=== PATIENT | male | born 1990 | race Caucasian/White ===

== ENCOUNTER 2016-10-16 08:06 | Emergency (ER) | payer OTHER ==
[~2016-10-16] VITALS: Ht 177.8 cm; Wt 127.0 kg
[~2016-10-16 08:06] MED LIST: ATARAX,VISTARIL25 MG PO; CORTIZONE-10 PL57 GM TP; FOCALIN XR15 MG PO; FOCALIN XR20 MG PO; GEODON80 MG PO; HYDROXYZINE HCL25 MG PO; KENALOG,ARISTOC80 G1 TP; LEXAPRO10 MG PO; MOTRIN600 MG PO; NYSTATIN15 GM TP; VENLAFAXINE H37.5 M3 PO; focalin
[2016-10-16 08:57] LABS: HEMATOCRIT 45.8 % (38.0-50.0); MCH 28.2 PG (29.0-34.0); MCHC 34.1 G/DL (30.0-36.0); MCV 82.7 FL (86-99); MEAN PLAT.VOLUME 10.1 uM^3 (9.0-12.4); PLATELET COUNT 285 K/uL (156-360); RBC DIS.WIDTH-CV 12.6 % (11.8-14.6); RBC DIS.WIDTH-SD 38.2 % (39-53); RED BLOOD COUNT 5.54 M/uL (4.00-5.50); WHITE BLOOD COUNT 8.2 K/uL (4.1-10.2)
[2016-10-16 09:06] LABS: CHLORIDE 104 mEq/L (99-109); POTASSIUM 4.5 mEq/L (3.7-5.4); SODIUM 138 mEq/L (136-147)
[2016-10-16 09:08] LABS: GLUCOSE 101 mg/dL (70-99)
[2016-10-16 09:09] LABS: ANION GAP 9 MEQ/L (2-14)
[2016-10-16] MEDS ORDERED: CLONIDINE HCL0.1 MG PO (09:10)
[2016-10-16 09:11] LABS: SERUM ETHYL ALCOHOL < 10 mg/dL
[2016-10-16] MEDS ORDERED: ABILIFY10 MG PO (09:11)
[2016-10-16 09:12] LABS: GFR ESTIMATE (CALCULATED) > 59 mL/min/
[2016-10-16 09:13] LABS: UREA NITROGEN (BUN) 16 mg/dL (9-23)
[2016-10-16 10:03] LABS: AMPHETAMINE NEGATIVE (500 ng/mL); BARBITURATES NEGATIVE (200 ng/mL); BENZODIAZEPINES NEGATIVE (150 ng/mL); COCAINE NEGATIVE (150 ng/mL); INTERNAL CONTROLS VALID? YES; METHADONE NEGATIVE (200 ng/mL); METHAMPHETAMINE NEGATIVE (500 ng/mL); OPIATES (MORPHINE) NEGATIVE (100 ng/mL); OXYCODONE NEGATIVE (100 ng/mL); PHENCYCLIDINE NEGATIVE (25 ng/mL); PROPOXYPHENE NEGATIVE (300 ng/mL); THC CANNABINOIDS NEGATIVE (50 ng/mL); TRICYCLIC ANTIDEPRESSANTS NEGATIVE (300 ng/mL)
[2016-10-16 10:42] VITALS: BP 113/74
== END 2016-10-16 10:43 | disposition home or self-care (01) ==
LOC: EME 08:06
PROVIDERS: Emergency Medicine
DX: F33.1 Major depressive disorder, recurrent, moderate (principal); F41.8 Other specified anxiety disorders; Z88.0 Allergy status to penicillin
CPT/HCPCS: 80048; 85027; 90839; 99281; 99285; G0480

== ENCOUNTER 2017-04-07 15:28 | Emergency (ER) | payer OTHER ==
[~2017-04-07] VITALS: Ht 177.8 cm; Wt 129.8 kg
[~2017-04-07 15:28] MED LIST changes: +ABILIFY10 MG PO; +CLONIDINE HCL0.1 MG PO
[2017-04-07] MEDS ORDERED: BENADRYL50 MG PO (17:22)
[2017-04-07] MEDS ORDERED: PREDNISONE10 MG PO (17:22)
[2017-04-07 17:38] VITALS: BP 138/97
== END 2017-04-07 17:53 | disposition home or self-care (01) ==
LOC: EME 15:28
DX: R51 Headache (principal); R06.7 Sneezing; T50.905A Adverse effect of unspecified drugs, medicaments and biological substances, initial encounter
CPT/HCPCS: 99281; 99283; J7512

== ENCOUNTER 2017-09-17 21:22 | Emergency (ER) | payer OTHER ==
[~2017-09-17] VITALS: Ht 177.8 cm; Wt 127.7 kg
[~2017-09-17 21:22] MED LIST changes: +BENADRYL50 MG PO; +PREDNISONE10 MG PO
[2017-09-17 22:15] LABS: APPEARANCE CLEAR ((CLEAR)); BILIRUBIN NEGATIVE; BLOOD NEGATIVE; COLOR YELLOW ((YELLOW)); GLUCOSE (STRIP) NEGATIVE; KETONES NEGATIVE; LEUKOCYTES NEGATIVE; NITRITE NEGATIVE; PROTEIN (STRIP) NEGATIVE; SPECIFIC GRAVITY 1.023 (1.000-1.030); UCUL ADDED? NO; UROBILINOGEN 0.2 MG/DL (0.2-1.0)
[2017-09-17 22:44] LABS: SOURCE URINE
[2017-09-17 22:46] LABS: HEMATOCRIT 42.3 % (38.0-50.0); HEMOGLOBIN 14.7 G/DL (12.5-16.6); MCH 28.6 PG (29.0-34.0); MCHC 34.8 G/DL (30.0-36.0); MCV 82.3 FL (86-99); PLATELET COUNT 260 K/uL (156-360); RBC DIS.WIDTH-CV 12.4 % (11.8-14.6); RBC DIS.WIDTH-SD 37.2 % (39-53); RED BLOOD COUNT 5.14 M/uL (4.00-5.50); WHITE BLOOD COUNT 10.3 K/uL (4.1-10.2)
[2017-09-17 22:56] LABS: ALBUMIN 4.1 g/dL (3.2-4.8); CHLORIDE 108 mEq/L (99-109); POTASSIUM 4.3 mEq/L (3.7-5.4); SODIUM 139 mEq/L (136-147)
[2017-09-17 22:58] LABS: GLUCOSE 104 mg/dL (70-99); TOTAL PROTEIN 7.2 g/dL (6.4-8.3)
[2017-09-17 23:00] LABS: TOTAL BILIRUBIN 0.3 mg/dL (0.0-1.0)
[2017-09-17 23:02] LABS: ALKALINE PHOSPHATASE 60 IU/L (3-129); CREATININE 0.8 mg/dL (0.6-1.3); GFR ESTIMATE (CALCULATED) > 59 mL/min/ (58.99-99999)
[2017-09-17 23:03] LABS: UREA NITROGEN (BUN) 15 mg/dL (9-23)
[2017-09-17 23:04] LABS: AST (GOT) 21 IU/L (2-34)
[2017-09-17 23:05] LABS: ALT (GPT) 18 IU/L (3-49); LIPASE 24 U/L (1.0-51.0)
[2017-09-17 23:25] VITALS: BP 113/56
[2017-09-20 12:53] LABS: CHLAMYDIA TRACHOMATIS NEGATIVE; NEISSERIA GONORRHOEAE NEGATIVE
== END 2017-09-17 23:34 | disposition home or self-care (01) ==
LOC: EME 21:22
PROVIDERS: Physician Assistant
DX: M54.9 Dorsalgia, unspecified (principal); R10.30 Lower abdominal pain, unspecified; J45.909 Unspecified asthma, uncomplicated; F32.9 Major depressive disorder, single episode, unspecified; F90.9 Attention-deficit hyperactivity disorder, unspecified type; F42.9 Obsessive-compulsive disorder, unspecified; F41.9 Anxiety disorder, unspecified; F31.9 Bipolar disorder, unspecified; Z88.0 Allergy status to penicillin
CPT/HCPCS: 71046; 74176; 80053; 81003; 83690; 85027; 87491; 87591; 99281; 99284; J1885

== ENCOUNTER 2018-02-22 16:17 | Emergency (ER) | payer OTHER ==
[~2018-02-22] VITALS: Ht 177.8 cm; Wt 131.8 kg
[2018-02-22] MEDS ORDERED: LOPRESSOR25 MG PO (16:57)
[2018-02-22] MEDS ORDERED: RANITIDINE HCL150 M1 PO (16:58)
[2018-02-22 19:04] LABS: HEMATOCRIT 43.7 % (38.0-50.0); HEMOGLOBIN 15.2 G/DL (12.5-16.6); MCH 28.4 PG (29.0-34.0); MCHC 34.8 G/DL (30.0-36.0); MCV 81.7 FL (86-99); PLATELET COUNT 261 K/uL (156-360); RBC DIS.WIDTH-CV 12.6 % (11.8-14.6); RBC DIS.WIDTH-SD 37.3 % (39-53); RED BLOOD COUNT 5.35 M/uL (4.00-5.50); WHITE BLOOD COUNT 10.5 K/uL (4.1-10.2)
[2018-02-22 19:14] LABS: CHLORIDE 105 mEq/L (99-109); POTASSIUM 4.3 mEq/L (3.7-5.4); SODIUM 139 mEq/L (136-147)
[2018-02-22 19:16] LABS: GLUCOSE 97 mg/dL (70-99)
[2018-02-22 19:20] LABS: CREATININE 0.8 mg/dL (0.6-1.3); GFR ESTIMATE (CALCULATED) > 59 mL/min/ (58.99-99999)
[2018-02-22 19:21] LABS: UREA NITROGEN (BUN) 13 mg/dL (9-23)
[2018-02-22 19:26] LABS: TROP-I INTERPRETATION NEGATIVE; TROPONIN-I < 0.01 ng/mL (0.0-0.30)
[2018-02-22 21:14] VITALS: BP 114/54
== END 2018-02-22 21:16 | disposition home or self-care (01) ==
LOC: EME 16:17
PROVIDERS: Emergency Medicine
DX: R07.89 Other chest pain (principal); I49.3 Ventricular premature depolarization; I45.10 Unspecified right bundle-branch block; I49.1 Atrial premature depolarization; J45.909 Unspecified asthma, uncomplicated; F42.9 Obsessive-compulsive disorder, unspecified; F90.9 Attention-deficit hyperactivity disorder, unspecified type; F41.9 Anxiety disorder, unspecified; F32.9 Major depressive disorder, single episode, unspecified; F31.9 Bipolar disorder, unspecified; F95.2 Tourette's disorder; Z88.0 Allergy status to penicillin; Z88.8 Allergy status to other drugs, medicaments and biological substances
CPT/HCPCS: 71046; 80048; 84484; 85027; 93005; 99281; 99284